=== PATIENT | male | born 1955 | race Caucasian/White ===

== ENCOUNTER 2024-10-17 08:46 | Outpatient (RCR) | payer OTHER, SELFPAY ==
[2024-09-30 16:09] LABS: Collection Type, Urine Voided; Squamous Epithelial Cell,Urine 0 /hpf (0-5)
[2024-09-30 16:19] LABS: Basophils # (Auto) 0.1 Thou/mm3 (0.0-0.2); Basophils % (Auto) 1 % (0-2.5); Eosinophils % (Auto) 0 % (0-10); Hemoglobin 11.9 g/dL (13.5-16.0); Immature Granulocytes % (Auto) 1 % (0-0); Immature Granulocytes Auto 0.04 Thou/mm3 (0.00-0.00); Lymphocytes # (Auto) 2.3 Thou/mm3 (1.0-4.8); Lymphocytes % (Auto) 30 % (10-50); Mean Corpuscular Hemoglobin 30.1 pg (25.0-35.0); Mean Corpuscular Volume 88 fL (80-100); Monocytes # (Auto) 1.1 Thou/mm3 (0.0-0.8); Monocytes % (Auto) 15 % (0-12); Neutrophils % (Auto) 54 % (37-80); Nucleated Red Blood Cell % 0 /100 WBC (0); Platelet Count 127 Thou/mm3 (140-440); RDW Standard Deviation 51.4 fL (35.1-43.9); Red Blood Count 3.96 Miln/mm3 (4.50-5.90); White Blood Count 7.4 Thou/mm3 (3.8-10.6)
[2024-09-30 16:31] LABS: Bilirubin,Urine Negative (Negative); Blood,Urine Negative (Negative); Clarity,Urine Clear (Clear/Hazy); Color,Urine Lt-Yellow (Lt Yel-Yel); Glucose, Urine Negative (Negative); Ketones,Urine Negative (Negative); Leukocyte Esterase,Urine Negative (Negative); Nitrite,Urine Negative (Negative); Protein,Urine Negative (Neg - Trace); RBC,Urine < 1 /hpf (0-3); Specific Gravity,Urine 1.009 (1.001-1.035); Urobilinogen,Urine Negative mg/dL (0.0-1.0); WBC,Urine < 1 /hpf (0-5)
[2024-09-30 16:37] LABS: Alanine Aminotransferase 52 U/L (10-49); Albumin/Globulin Ratio 1.4 (1.2-2.2); Alkaline Phosphatase 237 U/L (46-116); Anion Gap 5 (7-16); Aspartate Amino Transferase 53 U/L (0-34); BUN/Creatinine Ratio 12 Ratio (12-20); Bilirubin,Total 0.6 mg/dL (0.3-1.2); Blood Urea Nitrogen 11 mg/dL (9-23); Carbon Dioxide 26.1 mMol/L (20.0-31.0); Chloride 102 mMol/L (98-107); Creatinine (Component) 0.9 mg/dL (0.6-1.3); Globulin 2.9 gm/dL (2.3-3.5); Glucose 125 mg/dL (74-106); Osmolality,Calculated 266 (275-295); Sodium 133 mMol/L (136-145); Total Protein 6.9 gm/dL (5.7-8.2); eGFR > 60 See Note
[2024-09-30 16:39] LABS: Carcinoembryonic Antigen 20.7 ng/mL (0.0-5.0)
[2024-10-13 16:06] LABS: Collection Type, Urine Voided; RBC,Urine 0 /hpf (0-3); Squamous Epithelial Cell,Urine 0 /hpf (0-5)
[2024-10-13 16:12] LABS: Basophils % (Auto) 1 % (0-2.5); Eosinophils % (Auto) 0 % (0-10); Hemoglobin 11.5 g/dL (13.5-16.0); Immature Granulocytes % (Auto) 1 % (0-0); Immature Granulocytes Auto 0.05 Thou/mm3 (0.00-0.00); Lymphocytes # (Auto) 1.6 Thou/mm3 (1.0-4.8); Lymphocytes % (Auto) 23 % (10-50); Mean Corpuscular HGB Conc 34.8 g/dl (31.0-37.0); Mean Corpuscular Hemoglobin 30.3 pg (25.0-35.0); Mean Corpuscular Volume 87 fL (80-100); Monocytes # (Auto) 1.3 Thou/mm3 (0.0-0.8); Monocytes % (Auto) 18 % (0-12); Neutrophils # (Auto) 4.1 Thou/mm3 (1.8-7.7); Neutrophils % (Auto) 58 % (37-80); Nucleated Red Blood Cell % 0 /100 WBC (0); Platelet Count 121 Thou/mm3 (140-440); Red Blood Count 3.79 Miln/mm3 (4.50-5.90); White Blood Count 7.1 Thou/mm3 (3.8-10.6)
[2024-10-13 16:17] LABS: Bilirubin,Urine Negative (Negative); Blood,Urine Negative (Negative); Clarity,Urine Clear (Clear/Hazy); Color,Urine Lt-Yellow (Lt Yel-Yel); Glucose, Urine Negative (Negative); Ketones,Urine Negative (Negative); Leukocyte Esterase,Urine Negative (Negative); Nitrite,Urine Negative (Negative); Protein,Urine Negative (Neg - Trace); Specific Gravity,Urine 1.006 (1.001-1.035); Urobilinogen,Urine Negative mg/dL (0.0-1.0); WBC,Urine < 1 /hpf (0-5)
[2024-10-13 16:40] LABS: Alanine Aminotransferase 37 U/L (10-49); Albumin/Globulin Ratio 1.4 (1.2-2.2); Alkaline Phosphatase 217 U/L (46-116); Anion Gap 9 (7-16); Aspartate Amino Transferase 31 U/L (0-34); BUN/Creatinine Ratio 14 Ratio (12-20); Bilirubin,Total 0.6 mg/dL (0.3-1.2); Blood Urea Nitrogen 11 mg/dL (9-23); Calcium 9.1 mg/dL (8.3-10.6); Calcium (Corrected) 9.1 mg/dL (8.5-10.1); Carbon Dioxide 23.8 mMol/L (20.0-31.0); Chloride 100 mMol/L (98-107); Creatinine (Component) 0.8 mg/dL (0.6-1.3); Globulin 2.8 gm/dL (2.3-3.5); Glucose 120 mg/dL (74-106); Osmolality,Calculated 266 (275-295); Potassium 3.6 mMol/L (3.4-5.1); Sodium 133 mMol/L (136-145); Total Protein 6.8 gm/dL (5.7-8.2); eGFR > 60 See Note
== END 2024-10-25 23:59 | disposition home or self-care (01) ==
LOC: SCTC 08:46
PROVIDERS: PCP Nurse Practitioner Family; Referring Provider Nurse Practitioner Family; Visit Provider Internal Medicine Hematology & Oncology
DX: Z51.11 Encounter for antineoplastic chemotherapy (principal); C18.0 Malignant neoplasm of cecum; C78.6 Secondary malignant neoplasm of retroperitoneum and peritoneum; B37.0 Candidal stomatitis; D64.9 Anemia, unspecified; D69.6 Thrombocytopenia, unspecified
CPT/HCPCS: 36591; 80053; 81001; 82378; 85025; 96366; 96367; 96368; 96375; 96411; 96413; 96415; 96416; 96417; 99212; A4216; J0640; J1100; J1642; J2469; J3490; J7060; J9190; J9263; Q5126; A9270; G0463

== ENCOUNTER → 2024-10-27 | Outpatient (CLI) | payer OTHER, SELFPAY ==
--- NOTE | 2024-10-27 13:00 | XR_ITS ---
Examination: CT chest with intravenous contrast CT abdomen with intravenous contrast CT pelvis with intravenous contrast 2-D coronal and sagittal reconstructions Time of exam: October 27, 2024 1340 hours Comparison May 27, 2024 INDICATIONS: Diagnosis malignant neoplasm colon undergoing chemotherapy, restaging CTDI: vol (mGy) : 11.4 DLP: (mGycm): 988 Technique: Multiple axial images of the chest, abdomen and pelvis with intravenous contrast, 3.0 mm slice thickness. Images obtained post intravenous injection Isovue 370 60 cc. 2-D sagittal and coronal reconstructions. Low dose protocols were performed. One or more of the following dose reduction techniques were used; automated exposure control, adjustment of the mA and/or KV according to patient size, use of iterative reconstruction technique. Findings: 3 mm right thyroid nodule No thoracic aortic aneurysm dilatation No paratracheal tracheobronchial or bronchopulmonary adenopathy No pneumonia, pulmonary edema or pleural disease No pulmonary nodules No change in liver masses, the largest 17 mm Mild ascites with reticular pattern in the peritoneum No gallstones No hydronephrosis No interval abdominal or pelvic lymphadenopathy No pancreatic mass Small bowel loops show thickening Hernia defect anterior abdomen 9 cm containing small bowel and colon without incarcerated bowel Bladder wall thickening measuring up to 7 mm Transverse prostate dimension 5.1 cm Moderate osteopenia IMPRESSION: No mediastinal lymphadenopathy No pneumonia, pulmonary edema, pleural disease or pulmonary nodules Repeating the CT abdomen pelvis study post oral and intravenous contrast would be very helpful in assessing for peritoneal carcinomatosis
== END | disposition home or self-care (01) ==
LOC: SCAT 12:43
PROVIDERS: PCP Nurse Practitioner Family; Referring Provider Internal Medicine Hematology & Oncology; Visit Provider Internal Medicine Hematology & Oncology
DX: C18.2 Malignant neoplasm of ascending colon (principal)
CPT/HCPCS: 71260; 74177; A4649; Q9967

== ENCOUNTER 2024-10-28 15:04 | Outpatient (RCR) | payer OTHER, SELFPAY ==
[2024-10-28 16:13] LABS: Collection Type, Urine Voided; Squamous Epithelial Cell,Urine 0 /hpf (0-5)
[2024-10-28 16:16] LABS: Basophils % (Auto) 1 % (0-2.5); Eosinophils # (Auto) 0.1 Thou/mm3 (0.0-0.5); Eosinophils % (Auto) 2 % (0-10); Hemoglobin 11.3 g/dL (13.5-16.0); Immature Granulocytes % (Auto) 0 % (0-0); Immature Granulocytes Auto 0.02 Thou/mm3 (0.00-0.00); Lymphocytes # (Auto) 1.7 Thou/mm3 (1.0-4.8); Lymphocytes % (Auto) 29 % (10-50); Mean Corpuscular HGB Conc 34.2 g/dl (31.0-37.0); Mean Corpuscular Hemoglobin 30.2 pg (25.0-35.0); Mean Corpuscular Volume 88 fL (80-100); Monocytes % (Auto) 18 % (0-12); Neutrophils # (Auto) 2.9 Thou/mm3 (1.8-7.7); Neutrophils % (Auto) 51 % (37-80); Nucleated Red Blood Cell % 0 /100 WBC (0); Platelet Count 138 Thou/mm3 (140-440); RDW Standard Deviation 57.1 fL (35.1-43.9); Red Blood Count 3.74 Miln/mm3 (4.50-5.90); White Blood Count 5.7 Thou/mm3 (3.8-10.6)
[2024-10-28 16:18] LABS: Bilirubin,Urine Negative (Negative); Blood,Urine Negative (Negative); Clarity,Urine Clear (Clear/Hazy); Color,Urine Yellow (Lt Yel-Yel); Glucose, Urine Negative (Negative); Ketones,Urine Negative (Negative); Leukocyte Esterase,Urine Negative (Negative); Nitrite,Urine Negative (Negative); Protein,Urine Negative (Neg - Trace); RBC,Urine 2 /hpf (0-3); Specific Gravity,Urine 1.014 (1.001-1.035); WBC,Urine < 1 /hpf (0-5)
[2024-10-28 16:40] LABS: Alanine Aminotransferase 36 U/L (10-49); Albumin, Serum 3.7 gm/dL (3.4-4.8); Albumin/Globulin Ratio 1.4 (1.2-2.2); Alkaline Phosphatase 207 U/L (46-116); Anion Gap 8 (7-16); Aspartate Amino Transferase 40 U/L (0-34); BUN/Creatinine Ratio 13 Ratio (12-20); Bilirubin,Total 0.6 mg/dL (0.3-1.2); Blood Urea Nitrogen 10 mg/dL (9-23); Calcium 8.7 mg/dL (8.3-10.6); Calcium (Corrected) 8.9 mg/dL (8.5-10.1); Carbon Dioxide 25.6 mMol/L (20.0-31.0); Chloride 99 mMol/L (98-107); Creatinine (Component) 0.8 mg/dL (0.6-1.3); Globulin 2.6 gm/dL (2.3-3.5); Glucose 130 mg/dL (74-106); Osmolality,Calculated 267 (275-295); Potassium 3.8 mMol/L (3.4-5.1); Sodium 133 mMol/L (136-145); Total Protein 6.3 gm/dL (5.7-8.2); eGFR > 60 See Note
[2024-10-28 16:41] LABS: Carcinoembryonic Antigen 19.1 ng/mL (0.0-5.0)
== END 2024-11-25 23:59 | disposition home or self-care (01) ==
LOC: SCTC 15:04
PROVIDERS: PCP Nurse Practitioner Family; Referring Provider Nurse Practitioner Family; Visit Provider Internal Medicine Hematology & Oncology
DX: C18.0 Malignant neoplasm of cecum (principal); C78.6 Secondary malignant neoplasm of retroperitoneum and peritoneum; B37.0 Candidal stomatitis; D64.9 Anemia, unspecified; D69.6 Thrombocytopenia, unspecified
CPT/HCPCS: 36591; 80053; 81001; 82378; 85025; A4216; J1642

== ENCOUNTER → 2024-11-21 | Outpatient (CLI) | payer OTHER, SELFPAY ==
--- NOTE | 2024-11-21 11:30 | XR_ITS ---
Examination: CT abdomen with intravenous contrast CT pelvis with intravenous contrast 2-D coronal reconstructions 2-D sagittal reconstructions Date and time of exam:November 21, 2024 1227 hours Comparison October 27, 2024 INDICATIONS: Diagnosis malignant neoplasm colon undergoing chemotherapy restaging. CTDI: vol (mGy) 18.1 DLP: (mGycm) 747 Technique: Multiple axial sections of the abdomen and pelvis have been obtained. 64 slice high-resolution scanner used. 3 mm axial sections have been obtained, post intravenous injection 60 cc Isovue-370 with oral Gastrografin 2-D sagittal, coronal reconstructions obtained. Low dose protocols were performed. One or more of the following dose reduction techniques were used; automated exposure control, adjustment of the mA and/or KV according to patient size, use of iterative reconstruction technique. Findings: Liver irregular in contour, multiple liver lesions again noted, including 17 mm posterior right lobe liver lesion, please see the PET/CT scan June 19, 2024 Mild ascites Gallbladder wall is mildly thickened No pancreatic mass Normal adrenal glands 7 cm masslike area in the cecal region, axial image 133 measuring 7.9 x 5.7 cm Reticular pattern in the anterior peritoneum, for instance axial image 83, consistent with peritoneal carcinomatosis Aorta is not enlarged Intact urinary bladder Transverse prostate dimension 5.3 cm Moderate osteopenia IMPRESSION: Primary hepatocellular disease, multiple liver lesions, the largest 17 mm posterior right lobe liver, please see the PET/CT scan June 19, 2024 report Umbilical hernia defect containing colon and small bowel but no incarcerated bowel 7 cm masslike area in the cecal region, consider colonic mass, peritoneal tumor mass displacing the cecum Findings highly suspicious for peritoneal carcinomatosis Consider repeating the PET/CT scan to compare with the June 19, 2024 exam
== END | disposition home or self-care (01) ==
PROVIDERS: PCP Nurse Practitioner Family; Referring Provider Internal Medicine Hematology & Oncology; Visit Provider Internal Medicine Hematology & Oncology
DX: K76.9 Liver disease, unspecified (principal); K42.9 Umbilical hernia without obstruction or gangrene; K63.89 Other specified diseases of intestine; C18.2 Malignant neoplasm of ascending colon
CPT/HCPCS: 74177; A4649; Q9963; Q9967

== ENCOUNTER 2024-12-26 08:51 | Outpatient (RCR) | payer OTHER, SELFPAY ==
--- NOTE | 2024-12-10 09:06 | CTCFLWUP_ITS ---
[facility] [address] [place], [place] [address] FOLLOW-UP NOTE Date: 12/10/2024 MR#: [id number] Name: MARÍA MARTIN : 1955 Dx: C18.2 Malignant neoplasm of ascending colon Identification. 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 Various postop agents most recently received FOLFOX and Avastin under Dr. Cuenca's direction CEA 10/28/2024 19.1 roughly the same number as in recent months. CT scan 11/21/2024 revealed prominent multiple liver lesions 7 center masslike area in the cecal niya on and peritoneal tumor mass displacing cecum. Patient having moderate pain symptoms and having to take more than the usual amount of Dilaudid 4 mg 3 times daily. Having irregular bowel movements constipation alternating with diarrhea and cramps. Would be interested in taking additional medications that is not an opioid to palliate symptoms. A#1. Stage IV ascending colon CA ileal descending colostomy 04/19/2023 receiving postop adjuvant syst emic therapy under Dr. Cuenca's direction. A#2. Increased abdominal pain with cramping symptoms and irregular bowel movements A#3. Had to increase Dilaudid to 4 mg 3 times daily which is more than usual, and I will add Bentyl 20 mg 4 times daily for 2-week trial which could help with the cramping symptoms and possibly with ir regular bowel symptoms. A#4. Told patient to contact me in 2 weeks about any need for further med adjustment. Otherwise I w ill see him again in 3 months. Electronically signed by: Abiodun Hardy M.D. 12/10/2024 9:04 AM
[2024-12-12 09:45] LABS: Collection Type, Urine Voided; RBC,Urine 0 /hpf (0-3); Squamous Epithelial Cell,Urine 0 /hpf (0-5)
[2024-12-12 09:54] LABS: Basophils # (Auto) 0.1 Thou/mm3 (0.0-0.2); Basophils % (Auto) 1 % (0-2.5); Eosinophils # (Auto) 0.1 Thou/mm3 (0.0-0.5); Eosinophils % (Auto) 1 % (0-10); Hematocrit 36.3 % (41.0-53.0); Hemoglobin 12.3 g/dL (13.5-16.0); Immature Granulocytes % (Auto) 0 % (0-0); Immature Granulocytes Auto 0.02 Thou/mm3 (0.00-0.00); Lymphocytes # (Auto) 1.3 Thou/mm3 (1.0-4.8); Lymphocytes % (Auto) 20 % (10-50); Mean Corpuscular HGB Conc 33.9 g/dl (31.0-37.0); Mean Corpuscular Hemoglobin 30.4 pg (25.0-35.0); Mean Corpuscular Volume 90 fL (80-100); Monocytes # (Auto) 0.9 Thou/mm3 (0.0-0.8); Monocytes % (Auto) 13 % (0-12); Neutrophils # (Auto) 4.1 Thou/mm3 (1.8-7.7); Neutrophils % (Auto) 64 % (37-80); Nucleated Red Blood Cell % 0 /100 WBC (0); Platelet Count 166 Thou/mm3 (140-440); RDW Standard Deviation 46.5 fL (35.1-43.9); Red Blood Count 4.05 Miln/mm3 (4.50-5.90); White Blood Count 6.4 Thou/mm3 (3.8-10.6)
[2024-12-12 10:10] LABS: Alanine Aminotransferase 27 U/L (10-49); Albumin/Globulin Ratio 1.4 (1.2-2.2); Alkaline Phosphatase 279 U/L (46-116); Anion Gap 8 (7-16); Aspartate Amino Transferase 30 U/L (0-34); BUN/Creatinine Ratio 13 Ratio (12-20); Bilirubin,Total 0.5 mg/dL (0.3-1.2); Blood Urea Nitrogen 12 mg/dL (9-23); Calcium 9.1 mg/dL (8.3-10.6); Calcium (Corrected) 9.1 mg/dL (8.5-10.1); Carbon Dioxide 27.9 mMol/L (20.0-31.0); Chloride 102 mMol/L (98-107); Creatinine (Component) 0.9 mg/dL (0.6-1.3); Globulin 2.9 gm/dL (2.3-3.5); Glucose 124 mg/dL (74-106); Osmolality,Calculated 276 (275-295); Potassium 3.8 mMol/L (3.4-5.1); Sodium 138 mMol/L (136-145); Total Protein 6.9 gm/dL (5.7-8.2); eGFR > 60 See Note
[2024-12-12 10:12] LABS: Carcinoembryonic Antigen 28.6 ng/mL (0.0-5.0)
[2024-12-12 12:19] LABS: Bilirubin,Urine Negative (Negative); Blood,Urine Negative (Negative); Clarity,Urine Clear (Clear/Hazy); Color,Urine Lt-Yellow (Lt Yel-Yel); Glucose, Urine Negative (Negative); Ketones,Urine Negative (Negative); Leukocyte Esterase,Urine Negative (Negative); Nitrite,Urine Negative (Negative); PH,Urine 7.5 (5.0-7.0); Protein,Urine Negative (Neg - Trace); Urobilinogen,Urine Negative mg/dL (0.0-1.0); WBC,Urine < 1 /hpf (0-5)
--- NOTE | 2024-12-15 13:49 | CTCFLWUP_ITS ---
Patient: MARÍA LARSEN : 1955 Page 7 of 8 FOLLOW UP NOTE DATE OF SERVICE: 12/15/2024 NAME: MARÍA LARSEN ACCOUNT: [id number] : 1955 AGE: 69 INTERVAL HISTORY: Patient have been off chemotherapy since sep 2024 . patient wants to resume it now . 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 No loss of expression of MMR proteins. Progressed on FOLFIRI and Avastin (03/05/2024??05/28/2024) S/p CapeOx chemotherapy. (05/30/2023?10/31/2023) Maintenance capecitabine and bevacizumab discontinued on 02/14/2024. FOLFOX plus Avastin started at the last visit by Dr. Tenorio in June 2024 DATE OF DIAGNOSIS: 04/02/2023 STAGE/TNM: Metastic cancer TREATMENT HISTORY: Care?Plan Start?Date Cycle Day Intent CapOX?adj?8?cycles?3?tami 05/30/2023 1 21 Palliative mFOLFOX-6?-?5FU?400?+?2400?CIV,?LVR?400,OXALIplat?85 05/16/2023 2 14 Palliative Bevacizumab?7.5?mg/kg?-?Met 09/19/2023 1 21 Palliative FOLFIRI?+?Bevacizumab?5mg/kg 03/05/2024 1 14 Palliative mFOLFOX-6?+?Bevacizumab?5?mg/kg 07/09/2024 1 14 Palliative HISTORY OF PRESENT ILLNESS: María Larsen is a 69-year-old ENG speaking male with history of BPH has the following oncolo gy history. 12/25/2022: Patient had endoscopy done for right upper quadrant abdominal pain of few months duration. 04/02/2023: Colonoscopy was performed due to persistent abdominal pain 04/09/2023: CEA 49.7 04/19/2023: Mr. Larsen had exploratory laparotomy and ileal descending colostomy 05/30/2023: Patient is started on CapeOx chemotherapy. 05/30/2023: CEA 49.8. 06/19/2023: CEA 59.3. 07/10/2023: CEA 38.0. 07/31/2023: CEA 23.2. 08/28/2023: CEA 9.3. 01/02/2024: CEA 3.8. 02/13/2024: CT scan of the chest abdomen and pelvis with IV contrast 03/05/2024: Capecitabine and bevacizumab discontinued. Mr. Larsen is started on FOLFIRI and bevacizumab. 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 Tobacco Use:?SMOKED OCCASIONALLY OVER 20YEARS AGO Drug?Note:?ADMITS MARIJUANA USE VAPES DAILY NEEDED MEDICATIONS: 1. Albuterol Sulfate HFA - 90 mcg/Actuation 1 Puff(s) Three times a day 2. Ativan - 0.5 mg 1 tab As needed 3. Colace - 50 mg 1 Capsule Twice a Day 4. Compazine - 5 mg 1 tab Three times a day 5. dicyclomine - 20 mg 1 tab four times a day 6. Dilaudid - 4 mg 1 tab four times a day 7. FeosoL - 325 mg (65 mg iron) 1 tab Daily 8. lisinopril - 5 mg 1 tab Daily 9. Mouthwash - As directed 10. multivitamin - 1 Capsule Daily 11. pantoprazole - 40 mg 1 tab Daily 12. PROzac - 10 mg 1 Capsule one po q daily 13. tamsulosin - 0.4 mg 1 Capsule Daily 14. zinc - 50 mg 1 Capsule Daily 15. Zofran - 4 mg 1 tab As needed Medications Last Reconciled by Nicole Arreguin MA on 12/15/2024 ALLERGIES: Sulfa (Sulfonamide Antibiotics); hydrocodone-acetaminophen; hydrocodone-acetaminophen REVIEW OF SYSTEMS: A complete 14-point review of systems was performed and is negative except as noted in interval histo ry. EXTREMITIES: No pedal edema or cyanosis. LABORATORY DATA: I have personally reviewed and interpreted each of the patient?s relevant lab tests, abnormal finding s are below: Date 12/12/24 ??GLUCOSE,RANDOM?(mg/dL) 124?H ??BLOOD?UREA?NITROGEN?(mg/dL) 12 ??CREATININE?(mg/dL) 0.90 ??SODIUM?(mmol/L) 138 ??POTASSIUM?(mmol/L) 3.8 ??CHLORIDE?(mmol/L) 102 ??CrCl?(CandG)?(ml/min) 93.44 ??AST/SGOT?(Unit/L) 30 ??ALT/SGPT?(Unit/L) 27 ??ALKALINE?PHOSPHATASE?(Unit/L) 279?H ??BILIRUBIN,?TOTAL?(mg/dL) 0.5 ??PROTEIN?TOTAL?(gm/dl) 6.9 ??ALBUMIN,?SERUM?(gm/dl) 4.0 ??GLOBULIN?(gm/dl) 2.9 ??ALBUMIN/GLOBULIN?RATIO 1.4 ??CALCIUM,?SERUM?(mg/dL) 9.1 ??CALCIUM?SERUM?(CORRECTED)?(mg/dL) 9.1 ASSESSMENT/PLAN: Metastatic cancer #1 candidiasis patient has completed the required workup and also completed treatment for his Candid a. Doing well and now can resume treatment #2 metastatic colorectal cancer Patient have progressed on CapeOx FOLFIRI with Avastin Patient was avendaño ving hard time tolerating capecitabine Recently restarted on FOLFOX plus Avastin I do not have his K- nichole and BRAF mutation status Reviewed CEA and is showing uptrend CT scan reviewed Patient's CT scan findings are similar to the PET CT scan from May 2024 I will get a biopsy of the cecal mass Will do NGS panel on the mass Will resume chemotherapy #2 anemia and thrombocytopenia likely from chemotherapy As patient was on chemo break both hemoglobin and platelets are improved ORDERS: CBC CMP CEA IR guided biopsy NGS panel RETURN TO CLINIC: 4 weeks BILLING AND COMPLIANCE: I reviewed external records from providers outside my specialty as summarized above. I spent a total of 50 minutes on this patient?s care on the day of their visit excluding time spent related to any bi lled procedures. This time includes time spent with the patient as well as time spent documenting in the medical record, reviewing patients records and tests, obtaining history, placing orders, communi cating with other healthcare professionals, counseling the patient, family or caregiver, and/or care coordination for the diagnoses above. Electronically Signed by: {Object.Sanct_ID*PnP.NameFL@M}, {Object.Sanct_ID*PnP.Suffix@U} D: {Object.Sanct_Date} T: {Object.Sanct_Time} CC: Joy?Bill,? PCP: Liza Aguilera Referring: Liza Aguilera This document was completed utilizing speech recognition software. Grammatical errors, random word in sertions, pronoun errors, and incomplete sentences are an occasional consequence of this system due t o software limitations, ambient noise, and hardware issues. Any formal questions or concerns about th e content, text or information contained within the body of this dictation should be directly address ed to the provider for clarification.
[2024-12-23 09:48] LABS: Collection Type, Urine Clean Catch
[2024-12-23 09:50] LABS: Basophils % (Auto) 1 % (0-2.5); Eosinophils % (Auto) 1 % (0-10); Hematocrit 36.8 % (41.0-53.0); Hemoglobin 12.5 g/dL (13.5-16.0); Immature Granulocytes % (Auto) 1 % (0-0); Immature Granulocytes Auto 0.03 Thou/mm3 (0.00-0.00); Lymphocytes # (Auto) 1.1 Thou/mm3 (1.0-4.8); Lymphocytes % (Auto) 18 % (10-50); Mean Corpuscular Hemoglobin 30.3 pg (25.0-35.0); Mean Corpuscular Volume 89 fL (80-100); Monocytes # (Auto) 0.6 Thou/mm3 (0.0-0.8); Monocytes % (Auto) 10 % (0-12); Neutrophils # (Auto) 4.4 Thou/mm3 (1.8-7.7); Neutrophils % (Auto) 71 % (37-80); Nucleated Red Blood Cell % 0 /100 WBC (0); Platelet Count 161 Thou/mm3 (140-440); RDW Standard Deviation 44.6 fL (35.1-43.9); Red Blood Count 4.12 Miln/mm3 (4.50-5.90); White Blood Count 6.3 Thou/mm3 (3.8-10.6)
[2024-12-23 09:56] LABS: Bilirubin,Urine Negative (Negative); Blood,Urine Negative (Negative); Clarity,Urine Clear (Clear/Hazy); Color,Urine Yellow (Lt Yel-Yel); Glucose, Urine Negative (Negative); Ketones,Urine Negative (Negative); Leukocyte Esterase,Urine Negative (Negative); Nitrite,Urine Negative (Negative); Protein,Urine Negative (Neg - Trace); RBC,Urine < 1 /hpf (0-3); Specific Gravity,Urine 1.016 (1.001-1.035); Squamous Epithelial Cell,Urine < 1 /hpf (0-5); WBC,Urine 1 /hpf (0-5)
[2024-12-23 10:17] LABS: Alanine Aminotransferase 26 U/L (10-49); Albumin, Serum 4.2 gm/dL (3.4-4.8); Albumin/Globulin Ratio 1.4 (1.2-2.2); Alkaline Phosphatase 325 U/L (46-116); Anion Gap 8 (7-16); Aspartate Amino Transferase 29 U/L (0-34); BUN/Creatinine Ratio 16 Ratio (12-20); Bilirubin,Total 0.4 mg/dL (0.3-1.2); Blood Urea Nitrogen 13 mg/dL (9-23); Calcium 9.2 mg/dL (8.3-10.6); Calcium (Corrected) 9.2 mg/dL (8.5-10.1); Carbon Dioxide 27.1 mMol/L (20.0-31.0); Chloride 100 mMol/L (98-107); Creatinine (Component) 0.8 mg/dL (0.6-1.3); Globulin 2.9 gm/dL (2.3-3.5); Glucose 134 mg/dL (74-106); Osmolality,Calculated 272 (275-295); Potassium 3.9 mMol/L (3.4-5.1); Sodium 135 mMol/L (136-145); Total Protein 7.1 gm/dL (5.7-8.2); eGFR > 60 See Note
[2024-12-23 10:18] LABS: Carcinoembryonic Antigen 32.1 ng/mL (0.0-5.0)
== END 2024-12-26 23:59 | disposition home or self-care (01) ==
LOC: SCTC 08:51
PROVIDERS: Internal Medicine Hematology & Oncology; PCP Nurse Practitioner Family; Referring Provider Nurse Practitioner Family; Visit Provider Radiology Therapeutic Radiology
DX: Z51.11 Encounter for antineoplastic chemotherapy (principal); C18.0 Malignant neoplasm of cecum; C78.7 Secondary malignant neoplasm of liver and intrahepatic bile duct; C78.6 Secondary malignant neoplasm of retroperitoneum and peritoneum; D64.9 Anemia, unspecified; D69.6 Thrombocytopenia, unspecified; Z93.3 Colostomy status
CPT/HCPCS: 36591; 80053; 81001; 82378; 85025; 96366; 96367; 96368; 96375; 96411; 96413; 96415; 96416; 96417; 99212; 99213; 99424; 99425; A4216; J0640; J1100; J1642; J2469; J7050; J9190; J9263; Q5126; A9270; G0463

== ENCOUNTER 2025-01-23 07:54 | Outpatient (RCR) | payer OTHER, SELFPAY ==
[2025-01-06 12:59] LABS: Collection Type, Urine Voided; Squamous Epithelial Cell,Urine 0 /hpf (0-5)
[2025-01-06 13:07] LABS: Bilirubin,Urine Negative (Negative); Blood,Urine Negative (Negative); Clarity,Urine Clear (Clear/Hazy); Color,Urine Yellow (Lt Yel-Yel); Glucose, Urine Negative (Negative); Ketones,Urine Negative (Negative); Leukocyte Esterase,Urine Negative (Negative); Nitrite,Urine Negative (Negative); Protein,Urine Negative (Neg - Trace); RBC,Urine 1 /hpf (0-3); WBC,Urine 2 /hpf (0-5)
[2025-01-06 13:08] LABS: Basophils % (Auto) 1 % (0-2.5); Eosinophils % (Auto) 1 % (0-10); Hematocrit 36.7 % (41.0-53.0); Hemoglobin 12.7 g/dL (13.5-16.0); Immature Granulocytes % (Auto) 0 % (0-0); Immature Granulocytes Auto 0.02 Thou/mm3 (0.00-0.00); Lymphocytes # (Auto) 1.5 Thou/mm3 (1.0-4.8); Lymphocytes % (Auto) 25 % (10-50); Mean Corpuscular HGB Conc 34.6 g/dl (31.0-37.0); Mean Corpuscular Hemoglobin 29.9 pg (25.0-35.0); Mean Corpuscular Volume 86 fL (80-100); Monocytes # (Auto) 0.8 Thou/mm3 (0.0-0.8); Monocytes % (Auto) 13 % (0-12); Neutrophils # (Auto) 3.6 Thou/mm3 (1.8-7.7); Neutrophils % (Auto) 61 % (37-80); Nucleated Red Blood Cell % 0 /100 WBC (0); Platelet Count 181 Thou/mm3 (140-440); RDW Standard Deviation 41.8 fL (35.1-43.9); Red Blood Count 4.25 Miln/mm3 (4.50-5.90)
[2025-01-06 13:20] LABS: Alanine Aminotransferase 43 U/L (10-49); Albumin, Serum 4.1 gm/dL (3.4-4.8); Albumin/Globulin Ratio 1.3 (1.2-2.2); Alkaline Phosphatase 322 U/L (46-116); Anion Gap 7 (7-16); Aspartate Amino Transferase 39 U/L (0-34); BUN/Creatinine Ratio 14 Ratio (12-20); Bilirubin,Total 0.5 mg/dL (0.3-1.2); Blood Urea Nitrogen 13 mg/dL (9-23); Calcium 9.6 mg/dL (8.3-10.6); Calcium (Corrected) 9.6 mg/dL (8.5-10.1); Carbon Dioxide 26.5 mMol/L (20.0-31.0); Chloride 105 mMol/L (98-107); Creatinine (Component) 0.9 mg/dL (0.6-1.3); Globulin 3.2 gm/dL (2.3-3.5); Glucose 132 mg/dL (74-106); Osmolality,Calculated 277 (275-295); Potassium 4.2 mMol/L (3.4-5.1); Sodium 138 mMol/L (136-145); Total Protein 7.3 gm/dL (5.7-8.2); eGFR > 60 See Note
[2025-01-06 13:24] LABS: Carcinoembryonic Antigen 27.7 ng/mL (0.0-5.0)
[2025-01-20 10:28] LABS: Collection Type, Urine Voided; Squamous Epithelial Cell,Urine 0 /hpf (0-5)
[2025-01-20 10:32] LABS: Basophils % (Auto) 1 % (0-2.5); Eosinophils % (Auto) 1 % (0-10); Hematocrit 33.6 % (41.0-53.0); Hemoglobin 11.5 g/dL (13.5-16.0); Immature Granulocytes % (Auto) 0 % (0-0); Immature Granulocytes Auto 0.02 Thou/mm3 (0.00-0.00); Lymphocytes # (Auto) 1.2 Thou/mm3 (1.0-4.8); Lymphocytes % (Auto) 18 % (10-50); Mean Corpuscular HGB Conc 34.2 g/dl (31.0-37.0); Mean Corpuscular Hemoglobin 29.2 pg (25.0-35.0); Mean Corpuscular Volume 85 fL (80-100); Monocytes # (Auto) 0.8 Thou/mm3 (0.0-0.8); Monocytes % (Auto) 12 % (0-12); Neutrophils # (Auto) 4.5 Thou/mm3 (1.8-7.7); Neutrophils % (Auto) 69 % (37-80); Nucleated Red Blood Cell % 0 /100 WBC (0); Platelet Count 125 Thou/mm3 (140-440); RDW Standard Deviation 42.2 fL (35.1-43.9); Red Blood Count 3.94 Miln/mm3 (4.50-5.90); White Blood Count 6.6 Thou/mm3 (3.8-10.6)
[2025-01-20 10:38] LABS: Bilirubin,Urine Negative (Negative); Blood,Urine Negative (Negative); Clarity,Urine Clear (Clear/Hazy); Color,Urine Yellow (Lt Yel-Yel); Glucose, Urine Negative (Negative); Ketones,Urine Negative (Negative); Leukocyte Esterase,Urine Negative (Negative); Nitrite,Urine Negative (Negative); PH,Urine 6.5 (5.0-7.0); Protein,Urine Negative (Neg - Trace); RBC,Urine 1 /hpf (0-3); Specific Gravity,Urine 1.023 (1.001-1.035); WBC,Urine 2 /hpf (0-5)
[2025-01-20 10:54] LABS: Carcinoembryonic Antigen 31.8 ng/mL (0.0-5.0)
[2025-01-20 11:31] LABS: Alanine Aminotransferase 37 U/L (10-49); Albumin, Serum 3.7 gm/dL (3.4-4.8); Albumin/Globulin Ratio 1.4 (1.2-2.2); Alkaline Phosphatase 281 U/L (46-116); Anion Gap 9 (7-16); Aspartate Amino Transferase 38 U/L (0-34); BUN/Creatinine Ratio 17 Ratio (12-20); Bilirubin,Total 0.4 mg/dL (0.3-1.2); Blood Urea Nitrogen 15 mg/dL (9-23); Calcium 8.7 mg/dL (8.3-10.6); Calcium (Corrected) 8.9 mg/dL (8.5-10.1); Carbon Dioxide 26.5 mMol/L (20.0-31.0); Chloride 100 mMol/L (98-107); Creatinine (Component) 0.9 mg/dL (0.6-1.3); Globulin 2.6 gm/dL (2.3-3.5); Glucose 166 mg/dL (74-106); Osmolality,Calculated 274 (275-295); Potassium 3.6 mMol/L (3.4-5.1); Sodium 135 mMol/L (136-145); Total Protein 6.3 gm/dL (5.7-8.2); eGFR > 60 See Note
== END 2025-01-23 23:59 | disposition home or self-care (01) ==
LOC: SCTC 07:54
PROVIDERS: Internal Medicine Hematology & Oncology; PCP Nurse Practitioner Family; Referring Provider Nurse Practitioner Family; Visit Provider Radiology Therapeutic Radiology
DX: Z51.11 Encounter for antineoplastic chemotherapy (principal); C18.0 Malignant neoplasm of cecum; C78.7 Secondary malignant neoplasm of liver and intrahepatic bile duct; C78.6 Secondary malignant neoplasm of retroperitoneum and peritoneum; D64.9 Anemia, unspecified; D69.6 Thrombocytopenia, unspecified; Z93.3 Colostomy status
CPT/HCPCS: 36591; 80053; 81001; 82378; 85025; 96366; 96367; 96368; 96375; 96411; 96413; 96415; 96416; 96417; 99211; A4216; J0640; J1100; J1642; J2469; J7040; J7050; J7060; J9190; J9263; Q5126; A9270; G0463

== ENCOUNTER 2025-02-20 07:57 | Outpatient (RCR) | payer OTHER, SELFPAY ==
[2025-02-03 09:16] LABS: Basophils % (Auto) 1 % (0-2.5); Eosinophils # (Auto) 0.1 Thou/mm3 (0.0-0.5); Eosinophils % (Auto) 1 % (0-10); Hematocrit 33.8 % (41.0-53.0); Hemoglobin 11.7 g/dL (13.5-16.0); Immature Granulocytes % (Auto) 0 % (0-0); Immature Granulocytes Auto 0.03 Thou/mm3 (0.00-0.00); Lymphocytes # (Auto) 1.6 Thou/mm3 (1.0-4.8); Lymphocytes % (Auto) 21 % (10-50); Mean Corpuscular HGB Conc 34.6 g/dl (31.0-37.0); Mean Corpuscular Hemoglobin 29.2 pg (25.0-35.0); Mean Corpuscular Volume 84 fL (80-100); Monocytes # (Auto) 0.9 Thou/mm3 (0.0-0.8); Monocytes % (Auto) 11 % (0-12); Neutrophils # (Auto) 4.9 Thou/mm3 (1.8-7.7); Neutrophils % (Auto) 66 % (37-80); Nucleated Red Blood Cell % 0 /100 WBC (0); Platelet Count 142 Thou/mm3 (140-440); RDW Standard Deviation 45.3 fL (35.1-43.9); Red Blood Count 4.01 Miln/mm3 (4.50-5.90); White Blood Count 7.5 Thou/mm3 (3.8-10.6)
[2025-02-03 10:00] LABS: Alanine Aminotransferase 54 U/L (10-49); Albumin, Serum 3.7 gm/dL (3.4-4.8); Albumin/Globulin Ratio 1.3 (1.2-2.2); Alkaline Phosphatase 322 U/L (46-116); Anion Gap 8 (7-16); Aspartate Amino Transferase 42 U/L (0-34); BUN/Creatinine Ratio 14 Ratio (12-20); Bilirubin,Total 0.5 mg/dL (0.3-1.2); Blood Urea Nitrogen 13 mg/dL (9-23); Calcium 8.9 mg/dL (8.3-10.6); Calcium (Corrected) 9.1 mg/dL (8.5-10.1); Carbon Dioxide 25.3 mMol/L (20.0-31.0); Chloride 101 mMol/L (98-107); Creatinine (Component) 0.9 mg/dL (0.6-1.3); Globulin 2.8 gm/dL (2.3-3.5); Glucose 148 mg/dL (74-106); Osmolality,Calculated 271 (275-295); Potassium 3.7 mMol/L (3.4-5.1); Sodium 134 mMol/L (136-145); Total Protein 6.5 gm/dL (5.7-8.2); eGFR > 60 See Note
[2025-02-03 10:12] LABS: Carcinoembryonic Antigen 28.6 ng/mL (0.0-5.0)
[2025-02-03 10:55] LABS: Collection Type, Urine Voided
[2025-02-03 11:03] LABS: Bilirubin,Urine Negative (Negative); Blood,Urine Negative (Negative); Clarity,Urine Clear (Clear/Hazy); Color,Urine Yellow (Lt Yel-Yel); Glucose, Urine Negative (Negative); Ketones,Urine Negative (Negative); Leukocyte Esterase,Urine Negative (Negative); Nitrite,Urine Negative (Negative); Protein,Urine Negative (Neg - Trace); RBC,Urine < 1 /hpf (0-3); Specific Gravity,Urine 1.012 (1.001-1.035); Squamous Epithelial Cell,Urine < 1 /hpf (0-5); WBC,Urine < 1 /hpf (0-5)
--- NOTE | 2025-02-16 00:28 | CTCFLWUP_ITS ---
Patient: MARÍA LARSEN : 1955 Page 7 of 8 FOLLOW UP NOTE DATE OF SERVICE: 02/03/2025 NAME: MARÍA LARSEN ACCOUNT: [id number] : 1955 AGE: 70 INTERVAL HISTORY: Patient has been having hallucination as per . He also have headache. Patient feels more fatigued and tired. 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 No loss of expression of MMR proteins. Progressed on FOLFIRI and Avastin (03/05/2024??05/28/2024) S/p CapeOx chemotherapy. (05/30/2023?10/31/2023) Maintenance capecitabine and bevacizumab discontinued on 02/14/2024. FOLFOX plus Avastin started at the last visit by Dr. Tenorio in June 2024 Had chemo break from September -November DATE OF DIAGNOSIS: 04/02/2023 STAGE/TNM: Metastic cancer TREATMENT HISTORY: Care?Plan Start?Date Cycle Day Intent CapOX?adj?8?cycles?3?tami 05/30/2023 1 21 Palliative mFOLFOX-6?-?5FU?400?+?2400?CIV,?LVR?400,OXALIplat?85 05/16/2023 2 14 Palliative Bevacizumab?7.5?mg/kg?-?Met 09/19/2023 1 21 Palliative FOLFIRI?+?Bevacizumab?5mg/kg 03/05/2024 1 14 Palliative mFOLFOX-6?+?Bevacizumab?5?mg/kg 07/09/2024 1 14 Palliative HISTORY OF PRESENT ILLNESS: María Larsen is a 70-year-old ENG speaking male with history of BPH has the following oncology history. 12/25/2022: Patient had endoscopy done for right upper quadrant abdominal pain of few months duration. 04/02/2023: Colonoscopy was performed due to persistent abdominal pain 04/09/2023: CEA 49.7 04/19/2023: Mr. Larsen had exploratory laparotomy and ileal descending colostomy 05/30/2023: Patient is started on CapeOx chemotherapy. 05/30/2023: CEA 49.8. 06/19/2023: CEA 59.3. 07/10/2023: CEA 38.0. 07/31/2023: CEA 23.2. 08/28/2023: CEA 9.3. 01/02/2024: CEA 3.8. 02/13/2024: CT scan of the chest abdomen and pelvis with IV contrast 03/05/2024: Capecitabine and bevacizumab discontinued. Mr. Larsen is started on FOLFIRI and bevacizumab. 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 Tobacco Use:?SMOKED OCCASIONALLY OVER 20YEARS AGO Drug?Note:?ADMITS MARIJUANA USE VAPES DAILY NEEDED MEDICATIONS: 1. Albuterol Sulfate HFA - 90 mcg/Actuation 1 Puff(s) Three times a day 2. Ativan - 0.5 mg 1 tab As needed 3. Colace - 50 mg 1 Capsule Twice a Day 4. Compazine - 5 mg 1 tab Three times a day 5. Compazine - 25 mg Four times a day 6. dicyclomine - 20 mg 1 tab four times a day 7. Dilaudid - 4 mg 1 tab four times a day 8. FeosoL - 325 mg (65 mg iron) 1 tab Daily 9. lisinopril - 5 mg 1 tab Daily 10. Mouthwash - As directed 11. multivitamin - 1 Capsule Daily 12. nystatin - 100,000 unit/mL 5 mL Daily 13. pantoprazole - 40 mg 1 tab Daily 14. PROzac - 10 mg 1 Capsule one po q daily 15. tamsulosin - 0.4 mg 1 Capsule Daily 16. zinc - 50 mg 1 Capsule Daily 17. Zofran - 4 mg 1 tab As needed Medications Last Reconciled by Mira Ca MA on 02/03/2025 ALLERGIES: Sulfa (Sulfonamide Antibiotics); hydrocodone-acetaminophen; hydrocodone-acetaminophen REVIEW OF SYSTEMS: A complete 14-point review of systems was performed and is negative except as noted in interval history. PHYSICAL EXAMINATION: VITAL SIGNS: Temperature?97.5, B/P?151/75, Oxygen?Saturation?97% Weight?178?lbs (Change?since?01/23/25:?-4.4?lbs) PAIN: 0 - No pain ECOG Performance Status: None GENERAL APPEARANCE: Appears well, in no apparent distress, appropriately interactive. HEENT: Normocephalic, no temporal wasting, normal conjunctiva, no scleral icterus, normal hearing, lips without lesions, neck normal range of motion. CARDIOVASCULAR: Not assessed. PULMONARY: Normal respiratory effort, no respiratory distress or use of accessory muscles, speaking in full sentences, no tachypnea. EXTREMITIES: No pedal edema or cyanosis. SKIN: Normal skin appearance. NEUROLOGIC: Alert and oriented x4. PSHYCHIATRIC: Appropriate affect, mood normal, behavior normal, intact thought and speech. LABORATORY DATA: I have personally reviewed and interpreted each of the patient?s relevant lab tests, abnormal findings are below: Date 01/20/25 02/03/25 ??WHITE?BLOOD?COUNT?(Thou/mm3) ? 7.5 ??RED?BLOOD?COUNT?(Miln/mm3) ? 4.01?L ??HEMOGLOBIN?(gm/dl) ? 11.7?L ??HEMATOCRIT?(%) ? 33.8?L ??PLATELET?COUNT?(Thou/mm3) ? 142 ??NEUTROPHILS?%,?AUTO?(%) ? 66 ??LYMPH?%,?AUTO?(%) ? 21 ??NEUTROPHILS,?AUTO?(Thou/mm3) ? 4.9 ??GLUCOSE,RANDOM?(mg/dL) ? 148?H ??BLOOD?UREA?NITROGEN?(mg/dL) ? 13 ??CREATININE?(mg/dL) ? 0.90 ??SODIUM?(mmol/L) ? 134?L ??POTASSIUM?(mmol/L) ? 3.7 ??CHLORIDE?(mmol/L) ? 101 ??CrCl?(CandG)?(ml/min) ? 88.07 ??AST/SGOT?(Unit/L) ? 42?H ??ALT/SGPT?(Unit/L) ? 54?H ??ALKALINE?PHOSPHATASE?(Unit/L) ? 322?H ??BILIRUBIN,?TOTAL?(mg/dL) ? 0.5 ??PROTEIN?TOTAL?(gm/dl) ? 6.5 ??ALBUMIN,?SERUM?(gm/dl) ? 3.7 ??GLOBULIN?(gm/dl) ? 2.8 ??ALBUMIN/GLOBULIN?RATIO ? 1.3 ??CALCIUM,?SERUM?(mg/dL) ? 8.9 ??CALCIUM?SERUM?(CORRECTED)?(mg/dL) ? 9.1 ??CEA?(O*)?(ng/ml) 31.8?H 28.6?H ASSESSMENT/PLAN: Metastatic cancer #1 candidiasis patient has completed the required workup and also completed treatment for his Elizabeth. Doing well and now can resume treatment #2 metastatic colorectal cancer Patient have progressed on CapeOx FOLFIRI with Avastin Patient was having hard time tolerating capecitabine Recently restarted on FOLFOX plus Avastin I do not have his K-nichole and BRAF mutation status Reviewed CEA and is showing uptrend CT scan reviewed Patient's CT scan in October 2024 findings are similar to the PET CT scan from May 2024 I will get a biopsy of the cecal mass Will do NGS panel on the mass Patient's CEA level is stable Will get PET CT scan to see extent of disease Will get MRI to see if patient has any organic reason for hallucinations. Patient's symptoms are likely from chemotherapy Will proceed with the treatment IV hydration #2 anemia and thrombocytopenia likely from chemotherapy Stable ORDERS: Order # Description [id number] Comprehensive Metabolic Panel + CBC with Auto Diff + CEA + Urinalysis, Automated with Microscopy [id number] Follow Up Appointment [id number] MRI + Brain + With W/O Contrast [id number] PET/CT of Skull to mid-thigh for Restaging [id number] Infusion 6 Hours [id number] Discontinue CIV Pump [id number] Comprehensive Metabolic Panel + CBC with Auto Diff + CEA + Urinalysis, Automated with Microscopy RETURN TO CLINIC: 4 weeks to discuss results BILLING AND COMPLIANCE: I reviewed external records from providers outside my specialty as summarized above. I spent a total of 50 minutes on this patient?s care on the day of their visit excluding time spent related to any billed procedures. This time includes time spent with the patient as well as time spent documenting in the medical record, reviewing patients records and tests, obtaining history, placing orders, communicating with other healthcare professionals, counseling the patient, family or caregiver, and/or care coordination for the diagnoses above. Electronically Signed by: {Object.Sanct_ID*PnP.NameFL@M}, {Object.Sanct_ID*PnP.Suffix@U} D: {Object.Sanct_Date} T: {Object.Sanct_Time} CC: Joy?Bill,? PCP: Liza Aguilera Referring: Liza Aguilera This document was completed utilizing speech recognition software. Grammatical errors, random word insertions, pronoun errors, and incomplete sentences are an occasional consequence of this system due to software limitations, ambient noise, and hardware issues. Any formal questions or concerns about the content, text or information contained within the body of this dictation should be directly addressed to the provider for clarification.
[2025-02-17 09:12] LABS: Collection Type, Urine Voided; Squamous Epithelial Cell,Urine 0 /hpf (0-5)
[2025-02-17 09:16] LABS: Basophils # (Auto) 0.1 Thou/mm3 (0.0-0.2); Basophils % (Auto) 1 % (0-2.5); Eosinophils % (Auto) 0 % (0-10); Hematocrit 35.5 % (41.0-53.0); Hemoglobin 12.4 g/dL (13.5-16.0); Immature Granulocytes % (Auto) 0 % (0-0); Immature Granulocytes Auto 0.03 Thou/mm3 (0.00-0.00); Lymphocytes # (Auto) 0.8 Thou/mm3 (1.0-4.8); Lymphocytes % (Auto) 10 % (10-50); Mean Corpuscular HGB Conc 34.9 g/dl (31.0-37.0); Mean Corpuscular Hemoglobin 29.7 pg (25.0-35.0); Mean Corpuscular Volume 85 fL (80-100); Monocytes # (Auto) 0.5 Thou/mm3 (0.0-0.8); Monocytes % (Auto) 7 % (0-12); Neutrophils # (Auto) 6.5 Thou/mm3 (1.8-7.7); Neutrophils % (Auto) 83 % (37-80); Nucleated Red Blood Cell % 0 /100 WBC (0); Platelet Count 179 Thou/mm3 (140-440); RDW Standard Deviation 49.4 fL (35.1-43.9); Red Blood Count 4.18 Miln/mm3 (4.50-5.90); White Blood Count 7.9 Thou/mm3 (3.8-10.6)
[2025-02-17 09:19] LABS: Bilirubin,Urine Negative (Negative); Blood,Urine Negative (Negative); Clarity,Urine Clear (Clear/Hazy); Color,Urine Yellow (Lt Yel-Yel); Glucose, Urine Negative (Negative); Ketones,Urine Negative (Negative); Leukocyte Esterase,Urine Negative (Negative); Nitrite,Urine Negative (Negative); Protein,Urine Negative (Neg - Trace); RBC,Urine < 1 /hpf (0-3); Specific Gravity,Urine 1.018 (1.001-1.035); WBC,Urine < 1 /hpf (0-5)
[2025-02-17 09:33] LABS: Alanine Aminotransferase 29 U/L (10-49); Albumin, Serum 3.8 gm/dL (3.4-4.8); Albumin/Globulin Ratio 1.5 (1.2-2.2); Alkaline Phosphatase 267 U/L (46-116); Anion Gap 8 (7-16); Aspartate Amino Transferase 27 U/L (0-34); BUN/Creatinine Ratio 17 Ratio (12-20); Bilirubin,Total 1.2 mg/dL (0.3-1.2); Blood Urea Nitrogen 15 mg/dL (9-23); Calcium 8.8 mg/dL (8.3-10.6); Carbon Dioxide 25.9 mMol/L (20.0-31.0); Chloride 96 mMol/L (98-107); Creatinine (Component) 0.9 mg/dL (0.6-1.3); Globulin 2.6 gm/dL (2.3-3.5); Glucose 146 mg/dL (74-106); Osmolality,Calculated 264 (275-295); Potassium 3.7 mMol/L (3.4-5.1); Sodium 130 mMol/L (136-145); Total Protein 6.4 gm/dL (5.7-8.2); eGFR > 60 See Note
[2025-02-17 09:37] LABS: Carcinoembryonic Antigen 27.7 ng/mL (0.0-5.0)
== END 2025-02-23 23:59 | disposition home or self-care (01) ==
LOC: SCTC 07:57
PROVIDERS: PCP Nurse Practitioner Family; Referring Provider Nurse Practitioner Family; Visit Provider Internal Medicine Hematology & Oncology
DX: Z51.11 Encounter for antineoplastic chemotherapy (principal); C18.0 Malignant neoplasm of cecum; C78.7 Secondary malignant neoplasm of liver and intrahepatic bile duct; C78.6 Secondary malignant neoplasm of retroperitoneum and peritoneum; Z93.3 Colostomy status; R44.3 Hallucinations, unspecified; D64.9 Anemia, unspecified; D69.6 Thrombocytopenia, unspecified
CPT/HCPCS: 36591; 80053; 81001; 82378; 85025; 96366; 96367; 96368; 96375; 96411; 96413; 96416; 96417; 99212; A4216; J0640; J1100; J1642; J2469; J7050; J9190; J9263; Q5126; A9270; G0463

== ENCOUNTER → 2025-03-05 | Outpatient (CLI) | payer OTHER, SELFPAY ==
--- NOTE | 2025-03-05 10:15 | XR_ITS ---
Examination: MRI of brain without intravenous contrast. MRI brain with intravenous contrast. Date and time of exam:March 05, 2025 1016 hrs. Indications: Diagnosis malignant neoplasm colon 7 months ago with onset headaches Technique: Multiple axial and sagittal images of the brain to been obtained. Siemens high-resolution 1.52 Mona short bore scanner utilized. Sagittal sections, T1 weighted images, TR 500, TE 14, are performed. Axial sections proton-density and T2-weighted images have been obtained. Inversion recovery axial images, TR 9260, TE 111, TR 2500. Diffusion weighted images, axial sections, TR 4800, TE 128, B value 1000. Axial sections, ADC map, TR 4800, TE 128. Axial and coronal images were also obtained post 18 cc gadolinium administered intravenously. Findings:: Enlargement of the sella turcica is not present. The optic chiasm and infundibular stalk are not remarkable. There is no localized enlargement of the medulla or dipesh. Fourth ventricle and cerebellar tonsils appear normal in position. No subacute area of hemorrhage density is seen. Fourth ventricle is midline. Mass in the cerebellopontine angle region is not evident. 7th and 8th nerve complexes exhibit symmetry Globes are symmetrical Orbital musculature including medial lateral rectus muscles do not exhibit abnormality Increased white matter signal is mild Effacement of the cortical sulcal markings is not identified. Mass effect upon the ventricular system is not identified. Diffusion-weighted images demonstrate no focus of restricted range 10 Contrast images demonstrate 12 mm subtle focus of enhancement in the left basal ganglia axial image 14 Impression: Subtle 12 mm focus of enhancement in the left basal ganglia, recommend this patient return for triple dose gadolinium to exclude early cerebral metastasis
== END | disposition home or self-care (01) ==
PROVIDERS: PCP Nurse Practitioner Family; Referring Provider Internal Medicine Hematology & Oncology; Visit Provider Internal Medicine Hematology & Oncology
DX: C18.2 Malignant neoplasm of ascending colon (principal)
CPT/HCPCS: 70553; A9579

== ENCOUNTER → 2025-03-10 | Outpatient (CLI) | payer OTHER, SELFPAY ==
--- NOTE | 2025-03-10 08:00 | XR_ITS ---
EXAMINATION: PET/CT FUSION SKULL TO THIGH EXAM DATE AND TIME: March 10, [address] abdomen pelvis November 21, 2024, CT chest October 27, 2024, PET CT scan June 19, 2024 INDICATIONS: Diagnosis malignant neoplasm colon restaging post treatment CTDI:vol (mGy) 6.23 DLP: (mGycm) 568.74 PROCEDURE: 15.7 mCi FDG was administered intravenously To allow for distribution and uptake of radiotracer, the patient was allowed to rest quietly in a shielded room. Imaging was performed on an integrated 16-slice PET/CT scanner, with scanning from the skull base to the mid thigh. Serum blood glucose at the time of the injection was measured 109 mg/dL. CT scanning was performed without oral or intravenous contrast material. FINDINGS: Head and Neck: 22 mm hypermetabolic lymph node external to the right mandibular angle Chest: There is no alea hypermetabolism in the chest. There are no pulmonary nodules. Abdomen and Pelvis: There is diffuse hypermetabolic foci of liver activity, please see the CT abdomen pelvis report November 21, 2024 Prominent hypermetabolic activity in the cecum, measuring 7 x 4 cm on the current study There remains subtle hypermetabolic peritoneal activity Mild fluid subcapsular to the liver and in the abdomen with anterior abdominal wall hernia defect containing bowel but no incarcerated bowel Musculoskeletal: Marrow uptake is within normal range. IMPRESSION: Interval 22 mm hypermetabolic mass external to the right mandibular angle, recommend CT soft tissue neck post intravenous contrast The liver is replaced by multiple hypermetabolic foci, consider MRI abdomen liver follow-up pre and postcontrast, that appear more prominent compared to the PET CT scan June 19, 2024 There remains hypermetabolic peritoneal activity stable compared to the PET/CT scan June 19, 2024 Prominent hypermetabolic mass in the cecal region at least 7 x 4 cm
== END | disposition home or self-care (01) ==
LOC: CDIM 07:39
PROVIDERS: PCP Family Medicine; Referring Provider Internal Medicine Hematology & Oncology; Visit Provider Internal Medicine Hematology & Oncology
DX: R22.0 Localized swelling, mass and lump, head (principal); C18.2 Malignant neoplasm of ascending colon
CPT/HCPCS: 78815; A9552

== ENCOUNTER 2025-03-23 11:34 | Outpatient (RCR) | payer OTHER, SELFPAY ==
[2025-03-20 10:53] LABS: Collection Type, Urine Voided; Squamous Epithelial Cell,Urine 0 /hpf (0-5)
[2025-03-20 11:01] LABS: Basophils % (Auto) 0 % (0-2.5); Eosinophils % (Auto) 0 % (0-10); Hematocrit 33.9 % (41.0-53.0); Hemoglobin 11.8 g/dL (13.5-16.0); Immature Granulocytes % (Auto) 0 % (0-0); Immature Granulocytes Auto 0.04 Thou/mm3 (0.00-0.00); Lymphocytes # (Auto) 0.7 Thou/mm3 (1.0-4.8); Lymphocytes % (Auto) 8 % (10-50); Mean Corpuscular HGB Conc 34.8 g/dl (31.0-37.0); Mean Corpuscular Hemoglobin 29.6 pg (25.0-35.0); Mean Corpuscular Volume 85 fL (80-100); Monocytes # (Auto) 0.8 Thou/mm3 (0.0-0.8); Monocytes % (Auto) 9 % (0-12); Neutrophils # (Auto) 7.4 Thou/mm3 (1.8-7.7); Neutrophils % (Auto) 83 % (37-80); Nucleated Red Blood Cell % 0 /100 WBC (0); Platelet Count 234 Thou/mm3 (140-440); RDW Standard Deviation 50.2 fL (35.1-43.9); Red Blood Count 3.98 Miln/mm3 (4.50-5.90)
[2025-03-20 11:04] LABS: Bilirubin,Urine Negative (Negative); Blood,Urine Negative (Negative); Clarity,Urine Clear (Clear/Hazy); Color,Urine Yellow (Lt Yel-Yel); Glucose, Urine Negative (Negative); Ketones,Urine Negative (Negative); Leukocyte Esterase,Urine Negative (Negative); Nitrite,Urine Negative (Negative); Protein,Urine Negative (Neg - Trace); RBC,Urine 1 /hpf (0-3); Specific Gravity,Urine 1.016 (1.001-1.035); WBC,Urine < 1 /hpf (0-5)
[2025-03-20 11:21] LABS: Carcinoembryonic Antigen 34.3 ng/mL (0.0-5.0)
[2025-03-20 11:26] LABS: Alanine Aminotransferase 31 U/L (10-49); Albumin, Serum 3.9 gm/dL (3.4-4.8); Albumin/Globulin Ratio 1.3 (1.2-2.2); Alkaline Phosphatase 284 U/L (46-116); Anion Gap 8 (7-16); Aspartate Amino Transferase 32 U/L (0-34); BUN/Creatinine Ratio 19 Ratio (12-20); Bilirubin,Total 0.7 mg/dL (0.3-1.2); Blood Urea Nitrogen 15 mg/dL (9-23); Calcium (Corrected) 9.1 mg/dL (8.5-10.1); Carbon Dioxide 26.4 mMol/L (20.0-31.0); Chloride 100 mMol/L (98-107); Creatinine (Component) 0.8 mg/dL (0.6-1.3); Globulin 2.9 gm/dL (2.3-3.5); Glucose 147 mg/dL (74-106); Osmolality,Calculated 272 (275-295); Potassium 4.1 mMol/L (3.4-5.1); Sodium 134 mMol/L (136-145); Total Protein 6.8 gm/dL (5.7-8.2); eGFR > 60 See Note
--- NOTE | 2025-04-01 17:17 | CTCFLWUP_ITS ---
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 His CEA levels have been rising, indicating ongoing cancer activity despite stable imaging results. He experiences significant nausea and vomiting, with diminishing effectiveness of Zofran. The current chemotherapy regimen (FOLFOX and Avastin) will be discontinued, and a new regimen of Lonsurf with cetuximab will be initiated. A tumor biopsy for next-generation sequencing is planned, and the previously scheduled colonoscopy has been cancelled due to the patient's intolerance. 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 The patient's disease has shown progression on previous treatments, including FOLFIRI and Avastin, as well as Xeloda. He was on maintenance capecitabine and bevacizumab until January 2024 when treatment was discontinued for a chemo break. The patient's CEA levels have been increasing, now at 34, up from previous values of 27.7, 28, and 30.1, indicating ongoing cancer activity. He experiences significant issues with nausea and vomiting, which have been difficult to control. The patient reports episodes of vomiting lasting up to 24 hours, with Zofran becoming less effective in managing these symptoms. Compazine suppositories are sometimes used with variable success. The patient's overall condition appears to be relatively stable based on recent imaging, with a CT scan in October 2024 showing similar findings to a PET scan from May 2024. However, the rising CEA levels suggest that the current treatment may not be sufficiently effective. A cecal mass was previously identified, but a planned colonoscopy for further evaluation was cancelled due to concerns about the patient's ability to tolerate the procedure, given his severe nausea and difficulty with bowel preparation. The patient's last cycle of FOLFOX and Avastin was completed on February 12. Treatment adherence has been challenging due to the severe side effects, particularly the nausea and vomiting. The patient and his caregiver express concern about his ability to tolerate further invasive procedures or aggressive treatments. Medical History - Stage 4 metastatic mucinous adenocarcinoma of the rectum with peritoneal metastases Surgical History - Rectal surgery for stage 4 metastatic mucinous adenocarcinoma, with Dr. Lora bypassing a cecal mass Medications and Supplements - Zofran - No longer working well for nausea and vomiting - Compazine suppository - Used for episodes of vomiting lasting 24 hours - Folfox and Avastin - Discontinued due to progression - Xeloda - Discontinued due to progression - Capecitabine and bevacizumab - Discontinued in January 2024 for chemo break - Folfox - Last cycle completed on February 12 Laboratory, Imaging, and Diagnostic Test Results - CEA: - Current: 34 - Previous results: 27.7, 28, 30.1 (trending upward) - CT scan (October 2024): Similar to PET scan from May 2024 - PET scan (May 2024): No details provided Review of Systems Gastrointestinal: Positive for nausea and vomiting. Patient reports episodes of vomiting for 24 hours in a row. 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 No loss of expression of MMR proteins. Progressed on FOLFIRI and Avastin (03/05/2024??05/28/2024) S/p CapeOx chemotherapy. (05/30/2023?10/31/2023) Maintenance capecitabine and bevacizumab discontinued on 02/14/2024. FOLFOX plus Avastin started at the last visit by Dr. Tenorio in June 2024 Had chemo break from September -November Malignant neoplasm of ascending colon [ICD10] C18.2 DATE OF DIAGNOSIS: STAGE/TNM: TREATMENT HISTORY: Care?Plan Start?Date Cycle Day Intent CapOX?adj?8?cycles?3?tami 05/30/2023 1 21 Palliative mFOLFOX-6?-?5FU?400?+?2400?CIV,?LVR?400,OXALIplat?85 05/16/2023 2 14 Palliative Bevacizumab?7.5?mg/kg?-?Met 09/19/2023 1 21 Palliative FOLFIRI?+?Bevacizumab?5mg/kg 03/05/2024 1 14 Palliative mFOLFOX-6?+?Bevacizumab?5?mg/kg 07/09/2024 1 14 Palliative HISTORY OF PRESENT ILLNESS: 70-year-old male -old ENG speaking male with history of BPH has the following oncology history. 12/25/2022: Patient had endoscopy done for right upper quadrant abdominal pain of few months duration. 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 Tobacco Use:?SMOKED OCCASIONALLY OVER 20YEARS AGO Drug?Note:?ADMITS MARIJUANA USE VAPES DAILY NEEDED MEDICATIONS: 1. Albuterol Sulfate HFA - 90 mcg/Actuation 1 Puff(s) Three times a day 2. Ativan - 0.5 mg 1 tab As needed 3. Colace - 50 mg 1 Capsule Twice a Day 4. Compazine - 25 mg Four times a day 5. dicyclomine - 20 mg 1 tab four times a day 6. Dilaudid - 4 mg 1 tab four times a day 7. FeosoL - 325 mg (65 mg iron) 1 tab Daily 8. lisinopril - 5 mg 1 tab Daily 9. Lonsurf - 20-8.19 mg 2 tab twice Daily 10. Lonsurf - 15-6.14 mg 2 tab twice Daily 11. Mouthwash - As directed 12. multivitamin - 1 Capsule Daily 13. nystatin - 100,000 unit/mL 5 mL Daily 14. pantoprazole - 40 mg 1 tab Daily 15. PROzac - 10 mg 1 Capsule one po q daily 16. Reglan - 10 mg 1 tab Daily 17. tamsulosin - 0.4 mg 2 Capsule Daily 18. zinc - 50 mg 1 Capsule Daily 19. Zofran - 4 mg 1 tab As needed Medications Last Reconciled by Nicole Arreguin MA on 03/23/2025 ALLERGIES: Sulfa (Sulfonamide Antibiotics); hydrocodone-acetaminophen; hydrocodone-acetaminophen REVIEW OF SYSTEMS: A complete 14-point review of systems was performed and is negative except as noted in interval history. PHYSICAL EXAMINATION: VITAL SIGNS: PAIN: 5 - Between moderate and severe pain ECOG Performance Status: 0 - Asymptomatic and fully active The patient appeared well-nourished, alert, and in no apparent distress via video conferencing. LABORATORY DATA: I have personally reviewed and interpreted each of the patient?s relevant lab tests, abnormal findings are below: Date 02/17/25 03/20/25 ??WHITE?BLOOD?COUNT?(Thou/mm3) ? 9.0 ??RED?BLOOD?COUNT?(Miln/mm3) ? 3.98?L ??HEMOGLOBIN?(gm/dl) ? 11.8?L ??HEMATOCRIT?(%) ? 33.9?L ??PLATELET?COUNT?(Thou/mm3) ? 234 ??NEUTROPHILS?%,?AUTO?(%) ? 83?H ??LYMPH?%,?AUTO?(%) ? 8?L ??NEUTROPHILS,?AUTO?(Thou/mm3) ? 7.4 ??GLUCOSE,RANDOM?(mg/dL) 146?H 147?H ??BLOOD?UREA?NITROGEN?(mg/dL) 15 15 ??CREATININE?(mg/dL) 0.90 0.80 ??SODIUM?(mmol/L) 130?L 134?L ??POTASSIUM?(mmol/L) 3.7 4.1 ??CHLORIDE?(mmol/L) 96?L 100 ??CrCl?(CandG)?(ml/min) 86.38 93.26 ??AST/SGOT?(Unit/L) 27 32 ??ALT/SGPT?(Unit/L) 29 31 ??ALKALINE?PHOSPHATASE?(Unit/L) 267?H 284?H ??BILIRUBIN,?TOTAL?(mg/dL) 1.2 0.7 ??PROTEIN?TOTAL?(gm/dl) 6.4 6.8 ??ALBUMIN,?SERUM?(gm/dl) 3.8 3.9 ??GLOBULIN?(gm/dl) 2.6 2.9 ??ALBUMIN/GLOBULIN?RATIO 1.5 1.3 ??CALCIUM,?SERUM?(mg/dL) 8.8 9.0 ??CALCIUM?SERUM?(CORRECTED)?(mg/dL) 9.0 9.1 ??CEA?(O*)?(ng/ml) ? 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 Previous treatments include FOLFIRI and Avastin, followed by Xeloda, which both resulted in disease progression. The patient was then placed on maintenance capecitabine and bevacizumab, which was discontinued in January 2024 for a chemotherapy break. FOLFOX was restarted in October 2024. Recent CT scan in October 2024 was similar to PET scan from May 2024, suggesting stable disease. However, CEA levels have been rising (from 27.7 to 34), indicating ongoing cancer activity despite relative radiographic stability. The patient experiences significant nausea and vomiting, with dimi nishing effectiveness of Zofran, occasionally requiring Compazine suppositories. Plan: - Discontinue current chemotherapy regimen (FOLFOX and Avastin) - Initiate new chemotherapy regimen: Lonsurf with cetuximab - Pursue tumor biopsy for next-generation sequencing (NGS) panel - Consult with Dr. Lora for needle-guided biopsy of cecal mass - dr lora does not advise biopsy as high risk for performation - as biopsy not feasible, order blood-based NGS panel (liquid biopsy) - Cancel previously planned colonoscopy due to patient's intolerance and inability to complete bowel prep - Follow up on Lonsurf prescription transfer to [facility] - Monitor for treatment response and tolerability - Continue management of nausea and vomiting as neededORDERS: Order # Description [id number] [facility] Liquid CDX [id number] CT Scan + Neck + With W/O Contrast RETURN TO CLINIC: BILLING AND COMPLIANCE: I reviewed external records from providers outside my specialty as summarized above. I spent a total of 50 minutes on this patient?s care on the day of their visit excluding time spent related to any billed procedures. This time includes time spent with the patient as well as time spent documenting in the medical record, reviewing patients records and tests, obtaining history, placing orders, communicating with other healthcare professionals, counseling the patient, family or caregiver, and/or care coordination for the diagnoses above. Electronically Signed by: Jamir Cuenca MD T: 5:14 PM CC: Joy?Bill,? PCP: Liza Aguilera Referring: Liza Aguilera This document was completed utilizing speech recognition software. Grammatical errors, random word insertions, pronoun errors, and incomplete sentences are an occasional consequence of this system due to software limitations, ambient noise, and hardware issues. Any formal questions or concerns about the content, text or information contained within the body of this dictation should be directly addressed to the provider for clarification.
== END 2025-03-25 23:59 | disposition home or self-care (01) ==
LOC: SCTC 11:34
PROVIDERS: Internal Medicine Hematology & Oncology; PCP Nurse Practitioner Family; Referring Provider Nurse Practitioner Family; Visit Provider Radiology Therapeutic Radiology
DX: C18.2 Malignant neoplasm of ascending colon (principal); C78.6 Secondary malignant neoplasm of retroperitoneum and peritoneum; C78.7 Secondary malignant neoplasm of liver and intrahepatic bile duct; C78.5 Secondary malignant neoplasm of large intestine and rectum; R11.2 Nausea with vomiting, unspecified
CPT/HCPCS: 36591; 80053; 81001; 82378; 85025; 99212; 99213; A4216; J1642; G0463